=== PATIENT | male | born 1980 | race Two or more races ===

== ENCOUNTER 2025-03-08 17:16 | Emergency (ER) | payer OTHER ==
[~2025-03-08] VITALS: Ht 175.3 cm; Wt 77.6 kg
--- NOTE | 2025-03-08 17:36 | ED.PDOC ---
GI ASSESSMENT HPI Comments 44-year-old male presents with a chief complaint of nausea, vomiting, and abdominal pain. Patient states that his pain is localized to his diffuse abdomen, nonradiating, nonexertional, describes as cramps, and rates his pain a 7/10. 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 Patient mentions that he has been unable to hold down any liquids or solids. Patient mentions that he is vomiting bile at this time. Time Seen by MD: 17:30 Reviewed Notes: Medications, Allergies Allergies: Coded Allergies: NO KNOWN ALLERGIES (Unverified , 03/08/25) Information Source: Patient Mode of Arrival: Ambulatory Timing: Hours Duration: Since onset Prehospital treatment: None Quality: Cramping Vomitus: Bilious Stool: Normal Severity: Moderate Recent: None Recent Hx of: None Pain Location: Diffuse Modifying Factors: Food Associated sign and symptoms: Nausea, Vomiting, Abdominal Pain Past Medical History PAST MEDICAL HISTORY: Denies Surgical History: Appendectomy Family History Family History: Reviewed,noncontributory to illness Social History Smoker: Non-Smoker Alcohol: Denies ETOH Use Drugs: Marijuana Lives In: Home Constitutional: denies: chills, diaphoresis, fatigue, fever, malaise, sweats, weakness, others EENTM: denies: blurred vision, double vision, ear bleeding, ear discharge, ear drainage, ear pain, ear ringing, eye pain, eye redness, hearing loss, mouth pain, mouth swelling, nasal discharge, nose bleeding, nose congestion, nose pain, photophobia, tearing, throat pain, throat swelling, voice changes, others Respiratory: denies: cough, hemoptysis, orthopnea, SOB at rest, shortness of breath, SOB with excertion, stridor, wheezing, others Cardiovascular: denies: chest pain, dizzy spells, diaphoresis, Dyspnea on exertion, edema, irregular heart beat, left arm pain, lightheadedness, palpitations, PND, syncope, others Gastrointestinal: reports: abdominal pain, nausea, vomiting; denies: abdomen distended, blood streaked bowels, constipated, diarrhea, dysphagia, difficulty swallowing, hematemesis, melena, poor appetite, poor fluid intake, rectal bleeding, rectal pain, others Genitourinary: denies: burning, dysuria, flank pain, frequency, hematuria, incontinence, penile discharge, penile sore, pain, testicle pain, testicle swelling, urgency, others Neurological: denies: dizziness, fainting, headache, left sided numbness, left sided weakness, numbness, paresthesia, pre-existing deficit, right sided numbness, right sided weakness, seizure, speech problems, tingling, tremors, weakness, others Musculoskeletal: denies: back pain, gout, joint pain, joint swelling, muscle pain, muscle stiffness, neck pain, others Integumetry: denies: bruises, change in color, change in hair/nails, dryness, laceration, lesions, lumps, rash, wounds, others Allergic/Immunocompromised: denies: Difficulty Healing, Frequent Infections, Hives, Itching, others Hematologic/Lymphatic: denies: anemia, blood clots, easy bleeding, easy bruising, swollen glands, others Endocrine: denies: excessive hunger, excessive sweating, excessive thirst, excessive urination, flushing, intolerance to cold, intolerance to heat, unexplained weight gain, unexplained weight loss, others Psychiatric: denies: anxiety, bipolar disorder, depression, hopeless, panic disorder, schizophrenia, sleepless, suicidal, others All Other Systems: Reviewed and Negative Physical Exam General Appearance: Mild Distress HEENT: Normal ENT Inspection, Pharynx Normal, TMs Normal Neck: Full Range of Motion, Non-Tender, Normal, Normal Inspection Respiratory: Chest Non-Tender, Lungs Clear, No Accessory Muscle Use, No Respiratory Distress, Normal Breath Sounds Cardiovascular: No Edema, No JVD, No Murmur, No Gallop, Normal Peripheral Pulses, Regular Rate/Rhythm Breast Exam: Deferred Gastrointestinal: No Organomegaly, Non Tender, No Pulsatile Mass, Normal Bowel Sounds, Soft Genitalia: Deferred Pelvic: Deferred Rectal: Deferred Extremities: No calf tenderness, Normal capillary refill, Normal inspection, Normal range of motion, Non-tender, No pedal edema Musculoskeletal : Apperance: Normal Neurologic: Alert, marketing strategy analyst II-XII nml as Tested, No Motor Deficits, Normal Affect, Normal Mood, No Sensory Deficits Cerebellar Function: Normal Reflexes: Normal Skin: Dry, Normal Color, Warm Lymphatic: No Adenopathy Was a procedure done? Was a procedure done?: No GI differential Dx Differential Diagnosis: Gastritis/PUD, Gastroenteritis, Inflammatory BD, Pancreatitis, UTI, Electrolyte Imbalance, Food Poisoning X-Ray, Labs, Meds, VS Vital Signs Date Time Temp Pulse Resp B/P (MAP) Pulse Ox O2 Delivery O2 Flow Rate FiO2 03/08/25 20:23 64 16 143/76 (98) 98 03/08/25 18:00 98.2 87 18 110/51 (70) 95 98.2 03/08/25 17:30 98.2 87 18 110/51 (70) 95 98.2 Lab Test 03/08/25 17:50 03/08/25 17:35 Range/Units White Blood Count 16.7 H 4.4-10.8 10^3/uL Red Blood Count 5.82 4.5-5.90 10^6/uL Hemoglobin 17.2 13.5-17.5 g/dL Hematocrit 50.3 41.0-53.0 % Mean Corpuscular Volume 86.4 80.0-100.0 fL Mean Corpuscular Hemoglobin 29.5 28.0-32.0 pg Mean Corpuscular Hemoglobin Concent 34.2 32.0-36.0 g/dL Red Cell Distribution Width 13.2 11.8-14.3 % Platelet Count 374 140-450 10^3/uL Mean Platelet Volume 6.9 6.9-10.8 fL Neutrophils (%) (Auto) 90.3 H 37.0-80.0 % Lymphocytes (%) (Auto) 6.8 L 10.0-50.0 % Monocytes (%) (Auto) 2.5 0.0-12.0 % Eosinophils (%) (Auto) 0.0 0.0-7.0 % Basophils (%) (Auto) 0.4 0.0-2.0 % Neutrophils # (Auto) 15.1 H 1.6-8.6 10 ^3/uL Lymphocytes # (Auto) 1.1 0.4-5.4 10 ^3/uL Monocytes # (Auto) 0.4 0-1.3 10 ^3/uL Eosinophils # (Auto) 0 0-0.8 10 ^3/uL Basophils # (Auto) 0.1 0-0.2 10 ^3/uL Nucleated Red Blood Cells 0.2 % Sodium Level 138 136-145 mmol/L Potassium Level 4.2 3.5-5.1 mmol/L Chloride Level 98 98-107 mmol/L Carbon Dioxide Level 19 L 20-31 mmol/L Anion Gap 21 H 5-15 Blood Urea Nitrogen 40 H 9-23 mg/dL Creatinine 3.21 H 0.700-1.30 mg/dL Glomerular Filtration Rate Calc 23 >90 mL/min BUN/Creatinine Ratio 12.5 10.0-20.0 Serum Glucose 106 74-106 mg/dL Calcium Level 11.5 H 8.7-10.4 mg/dL Magnesium Level 2.6 1.6-2.6 mg/dL Creatine Kinase MB Pending Urine Color Yellow Yellow Urine Clarity Turbid H Clear Urine pH 5.0 5.0-9.0 Urine Specific [place] 1.020 1.001-1.035 Urine Protein 1+ H Negative Urine Ketones Trace Negative Urine Blood 1+ H Negative /uL Urine Nitrite Negative Negative Urine Bilirubin 1+ Negative Urine Urobilinogen 2 H Negative mg/dL Urine Leukocyte Esterase Negative Negative /uL Urine RBC 3 0 - 3 /hpf Urine Microscopic WBC < 1 0-3 /HPF Urine Squamous Epithelial Cells Mod <5 /hpf Urine Bacteria None seen None Seen /hpf Urine Hyaline Casts Mod 0 - 2 /lpf Urine Granular Casts Mod 0 /lpf Urine Mucus Few None Seen Urine Glucose Trace Normal mg/dL Current Medications Medications (Trade) Dose Ordered Sig/Santa Route Start Time Stop Time Status Last Admin Ondansetron HCl (Zofran) 4 mg ONCE ONCE IV 03/08/25 17:45 03/08/25 17:46 DC 03/08/25 18:05 Sodium Chloride 1,000 ml @ 1,000 mls/hr Q1H ONCE IVB 03/08/25 17:45 03/08/25 18:44 DC 03/08/25 18:04 Sodium Chloride 1,000 ml @ 1,000 mls/hr Q1H ONCE IV 03/08/25 20:00 03/08/25 20:59 DC 03/08/25 20:19 IV Hep-Lock was established The patient was given 1 L bolus of normal saline We did repeat the normal saline bolus at 1 L The patient's urine test is negative for UTI The patient has a chemistry panel with a BUN of 40 and a creatinine of 3.21 indicating significant dehydration The CO2 level is 19 The CBC shows an elevated white blood cell count of 16.7 We are going to discharge the patient at this time The patient will follow up with his primary care doctor The patient will return to the emergency department's condition worsens. Time of 1ST Reevaluation: 18:00 Reevaluation 1ST: Improved Patient Education/Counseling: Diagnosis, Treatment, Prognosis, Need For Follow Up Family Education/Counseling: No Family Present SEPSIS Sepsis Screen Physician Orders Heplock Iv (03/08/25 17:31) Creatine Kinase Ckmb (03/08/25 17:31) Vital Signs Date Time Temp Pulse Resp B/P (MAP) Pulse Ox O2 Delivery O2 Flow Rate FiO2 03/08/25 20:23 64 16 143/76 (98) 98 03/08/25 18:00 98.2 87 18 110/51 (70) 95 98.2 03/08/25 17:30 98.2 87 18 110/51 (70) 95 98.2 Laboratory Tests Test 03/08/25 17:50 White Blood Count 16.7 10^3/uL (4.4-10.8) H Medications Medications Dose Ordered Sig/Santa Route Start Time Stop Time Status Last Admin Dose Admin Ondansetron HCl 4 mg ONCE ONCE IV 03/08/25 17:45 03/08/25 17:46 DC 03/08/25 18:05 Sodium Chloride 1,000 ml @ 1,000 mls/hr Q1H ONCE IV 03/08/25 20:00 03/08/25 20:59 DC 03/08/25 20:19 Sodium Chloride 1,000 ml @ 1,000 mls/hr Q1H ONCE IVB 03/08/25 17:45 03/08/25 18:44 DC 03/08/25 18:04 Departure 1 Departure Time of Disposition: 21:05 Impression: Primary Impression: Dehydration Additional Impression: Heat exhaustion Qualified Codes: T67.5XXA - Heat exhaustion, unspecified, initial encounter Disposition: 01 HOME / SELF CARE / HOMELESS Condition: Fair Discharged With: Self Critical Care Note Critical Care Time?: No Stability Stability form required: No Heart Score Heart Score: Heart Score Response (Comments) Value History N/A 0 EKG N/A 0 Age N/A 0 Risk Factors N/A 0 Troponin N/A 0 Total 0 I personally scribed for ROMI FAJARDO MD ([email or web address]) on 03/08/25 at 17:36. Electronically submitted by Adi Leary ([email or web address]). ROMI FAJARDO MD Mar 08, 2025 17:36
[2025-03-08 18:00] VITALS: TEMP 98.2
[2025-03-08] MEDS: SODIUM CHLORIDE 0.9% 1,000 ML IVB ONE (18:04)
[2025-03-08] MEDS: ONDANSETRON HCL 4 MG/2 ML VIAL IV ONE (18:05)
[2025-03-08 18:08] LABS: Hematocrit 50.3 % (41.0-53.0); Hemoglobin 17.2 g/dL (13.5-17.5); Mean Corpuscular Hemoglobin 29.5 pg (28.0-32.0); Mean Corpuscular Volume 86.4 fL (80.0-100.0); Nucleated Red Blood Cells % 0.2 %
[2025-03-08 18:14] LABS: Urine Protein, UAD 1+ (Negative)
[2025-03-08 18:15] LABS: Anion Gap 21 (5-15); Chloride 98 mmol/L (98-107); Potassium 4.2 mmol/L (3.5-5.1); Sodium 138 mmol/L (136-145)
[2025-03-08 18:18] LABS: Calcium 11.5 mg/dL (8.7-10.4); Carbon Dioxide 19 mmol/L (20-31)
[2025-03-08 18:21] LABS: BUN/Creatinine Ratio 12.5 (10.0-20.0); Blood Urea Nitrogen 40 mg/dL (9-23); Glucose 106 mg/dL (74-106)
[2025-03-08 18:23] LABS: Magnesium 2.6 mg/dL (1.6-2.6)
[2025-03-08] MEDS: SODIUM CHLORIDE 0.9% 1,000 ML IV ONE (20:19)
[2025-03-08 20:23] VITALS: BP 143/76; PULSE 64; RESP 16; O2SAT 98
== END 2025-03-08 21:50 | disposition home or self-care (01) ==
LOC: ER 17:16
DX: T67.5XXA Heat exhaustion, unspecified, initial encounter (principal); E86.0 Dehydration; Z90.49 Acquired absence of other specified parts of digestive tract; X58.XXXA Exposure to other specified factors, initial encounter; Y93.89 Activity, other specified; Y92.89 Other specified places as the place of occurrence of the external cause; Y99.0 Civilian activity done for income or pay
CPT/HCPCS: 36415; 80048; 81001; 82553; 83735; 85025; 96361; 96374; 99283; J2405; J7030